=== PATIENT | male | born 1975 | race Caucasian/White ===

== ENCOUNTER 2018-04-03 12:45 | Outpatient (RCR) | payer OTHER, SELFPAY ==
--- NOTE | 2017-09-22 19:04 | MASS.EVAL_ITS ---
Massage Therapy Evaluation: Initial Evaluation Date: 09/22/2017 SUBJECTIVE: Denis is a 42 year old male who was referred to the [facility] facility for a massotherapy evaluation by Dr. Stewart Morales with the diagnosis of neck pain. Denis presents today with the symptoms of neck and upper back pain and tension. He also has muscle tension in his low back, hips and lower legs. Denis reports having a medical history of cervical spine fusion and chronic neck pain. He reports having minimal limitations during his daily activities. OBJECTIVE: Upon observation Denis has mild postural issues with his head forward and shoulders forward from the neutral position in sitting and standing. After examination and palpation I found Denis to have very high muscle tension with tenderness and myofascial restrictions in his sub occipitals, trapezius, rhomboids, scalenes, thoracic paraspinals. His hips, lumbar region and lower extremity muscles were also tight. His gastroc and soleus muscles had many knots and were very tender. The first treatment consisted of a one hour massage to his full body with myofascial release, muscle stripping, trigger point compression techniques, and cervical manual traction. ASSESSMENT: I feel that Denis is a good candidate for massotherapy at this time. He had a favorable response to the first treatment with reduction in his muscle aches, pain and tension. He also had improvement in his cervical flexibility. PLAN: The plan of care was reviewed with the patient. The patient is to be seen on as needed basis for a total of ten sessions with the recommendation of once every two weeks for a one hour treatment.
--- NOTE | 2018-04-15 14:46 | DS.PCM_ITS ---
Massage Therapy Discharge Summary: Discharge Date: 04/15/2018 Denis was seen for a massotherapy evaluation on 09/22/2017 with the diagnosis of neck pain. He was treated with six sessions of massage therapy consisting of deep pressure soft tissue techniques, myofascial release and trigger point compression to his cervical, thoracic, lower back, upper extremities and hips. Denis responded well to the therapy by reporting decreased tension and pain throughout his neck, shoulders, lower back and hips. His goals for therapy were met throughout the treatment sessions. At this time this patient is being discharged from our care at [facility] facility.
== END 2018-04-03 19:00 | disposition home or self-care (01) ==
LOC: MASS 12:45
PROVIDERS: Family Provider Family Medicine; PCP Family Medicine; Visit Provider Family Medicine
DX: M54.2 Cervicalgia (principal); G89.29 Other chronic pain
CPT/HCPCS: 97124

== ENCOUNTER 2019-03-14 09:30 | Outpatient (RCR) | payer OTHER, SELFPAY ==
--- NOTE | 2018-08-23 10:37 | MASS.EVAL ---
Massage Therapy Evaluation: Initial Evaluation Date: 08/21/2018 /Age: 01 1975, 43 Diagnosis: Cervicalgia Chronic Pain Medications: Zyrtec Multivitamin Goals: Decrease frequency & intensity of headaches Improve cervical range of motion Decrease pain and muscle tension Plan: The patient is to be seen one time per month or PRN for a total of 10 sessions Kimi Newman LMT
--- NOTE | 2019-04-09 15:16 | MASS.DISCH ---
Massage Therapy Discharge Summary: Discharge Date: 04/09/2019 Denis was seen for a massotherapy evaluation on 08/21/2018 with the diagnosis of neck pain. He was treated with nine sessions of massage therapy consisting of moderate to deep pressure soft tissue techniques, myofascial release and trigger point compression to his cervical, thoracic, lower back, upper extremities, hips and lower extremities. Denis responded well to the therapy by reporting decreased tension and pain throughout his head, neck, shoulders, lower back and hips. His goals for therapy were met throughout the treatment sessions. At this time this patient is being discharged from our care at [facility] facility.
== END 2019-03-14 19:00 | disposition home or self-care (01) ==
LOC: MASS 09:30
PROVIDERS: Family Provider Family Medicine; PCP Family Medicine; Referring Provider Family Medicine; Visit Provider Family Medicine
DX: M54.2 Cervicalgia (principal); G89.29 Other chronic pain
CPT/HCPCS: 97124

== ENCOUNTER 2020-04-23 08:15 | Outpatient (RCR) | payer OTHER, SELFPAY ==
--- NOTE | 2019-05-28 15:23 | MASS.EVAL_ITS ---
Massage Therapy Evaluation: Initial Evaluation Date: 05/28/2019 SUBJECTIVE: Denis is a 44 year old male who was referred to the [facility] facility for a massotherapy evaluation by Dr. Morales with the diagnosis of cervicalgia. Denis presents today with the symptoms of pain and tension in his neck, shoulders, back and hips. He also complains of a headache for three days in a row. Denis reports that he has a past medical history of a cervical spine surgery and pelvic surgery with metal plates from both procedures. He reports having minimal change in symptoms after stretching. OBJECTIVE: Upon observation Denis has some posture issues with his head and shoulders forward from the neutral position in sitting and standing. After examination and palpation I found Denis to have high muscle tension with tenderness and myofascial restrictions in his sub occipitals, levator scapulae, trapezius, rhomboids, scalenes, and paraspinals muscle group. His QL?s, lumbar paraspinals, piriformis, glute medius, glute minimus all had high tension with fascial restrictions and tender points. The first treatment consisted of a one hour massage to his upper body with myofascial release, muscle stripping, trigger point compression techniques. ASSESSMENT: I feel that Denis is a good candidate for massotherapy at this time. He had a favorable response to the first treatment with reduction in his muscle aches, pain and tension. He also had improvement in his cervical flexibility and low back flexibility. PLAN: The plan of care was reviewed with the patient. The patient is to be seen on an as needed basis for a total of ten sessions with the recommendation of once every month for a one hour treatment.
--- NOTE | 2020-04-23 13:33 | DS.PCM_ITS ---
Massage Therapy Discharge Summary: DATE: 04/23/20 V# [id number] PT NAME: SURYA BRODERICK : 79 REF PHYS: DR. CUBA THE PATIENT WAS SEEN FOR MASSOTHERAPY EVALUATION ON 05/28/19 WITH A DIAGNOSIS CERVICALGIA. THE PATIENT WAS TREATED WITH 3 SESSIONS OF MASSAGE CONSISTING OF ONE HOUR DEEP TISSUE MASSAGE. HIS GOALS OF TREATMENT WERE MET AND AT THIS TIME I AM DISCHARGING THE PATIENT FROM OUR CARE AT THE [facility] FOR 2020.
== END 2020-04-23 19:00 | disposition home or self-care (01) ==
LOC: MASS 08:15
PROVIDERS: PCP Family Medicine; Referring Provider Family Medicine; Visit Provider Family Medicine
DX: M54.2 Cervicalgia (principal)
CPT/HCPCS: 97124

== ENCOUNTER 2021-04-01 09:30 | Outpatient (RCR) | payer OTHER, SELFPAY ==
--- NOTE | 2020-06-02 15:53 | MASS.EVAL_ITS ---
Massage Therapy Evaluation: Initial Evaluation Date: 06/02/2020 SUBJECTIVE: Denis is a 45 year old male who was referred to the [facility] facility for a massotherapy evaluation by Dr. Morales with the diagnosis of cervicalgia. Denis presents today with the symptoms of pain and tension in his head, neck, shoulders, back, hips and hamstrings. Denis reports a past medical history of cervical spine surgery with fusion and metal implants. Denis complains of five or more headaches per week. He reports having minimal change in symptoms after his routine exercise stretching program. OBJECTIVE: Upon observation Denis has some posture issues with his head and shoulders forward from the neutral position in sitting and standing. After examination and palpation I found Denis to have high muscle tension with tenderness and myofascial restrictions in his sub occipitals, levator scapulae, trapezius, rhomboids, scalenes, and paraspinals muscle group. His QL?s, lumbar paraspinals, piriformis, glute medius, glute minimus and hamstrings all had high tension with fascial restrictions and tender points. The first treatment consisted of a one h our massage to his upper body with myofascial release, muscle stripping, trigger point compression techniques. ASSESSMENT: I feel that Denis is a good candidate for massotherapy at this time. He had a favorable response to the first treatment with reduction in his muscle aches, pain and tension. He also had improvement in his cervical flexibility and low back flexibility. PLAN: The plan of care was reviewed with the patient. The patient is to be seen on an as needed basis for a total of ten sessions with the recommendation of once every month for a one hour treatment.
--- NOTE | 2021-04-01 12:02 | DS.PCM_ITS ---
Massage Therapy Discharge Summary: Discharge Date: 04/01/2021 Denis was seen for a massotherapy evaluation on 06/02/2020 with the diagnosis of cervicalgia. He was treated with nine sessions of massage therapy consisting of deep pressure soft tissue techniques, myofascial release and trigger point compression to his cervical, thoracic, lower back, lower extremities and hips. Denis responded well to the therapy by reporting decreased tension and pain throughout his neck, shoulders, lower back and hips. His goals for therapy were met throughout the treatment sessions. At this time this patient is being discharged from our care at [facility] facility.
== END 2021-04-01 19:00 | disposition home or self-care (01) ==
LOC: MASS 09:30
PROVIDERS: PCP Family Medicine; Visit Provider Family Medicine
DX: M54.2 Cervicalgia (principal)
CPT/HCPCS: 97124

== ENCOUNTER 2021-08-13 12:30 | Outpatient (RCR) | payer OTHER, SELFPAY ==
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
== END 2021-08-13 19:00 | disposition home or self-care (01) ==
LOC: PT 12:30
PROVIDERS: PCP Family Medicine; Referring Provider Family Medicine; Visit Provider Family Medicine
DX: M54.2 Cervicalgia (principal); G89.29 Other chronic pain; M47.812 Spondylosis without myelopathy or radiculopathy, cervical region
CPT/HCPCS: 97110; 97140; 97161; 97164

== ENCOUNTER 2022-03-11 08:59 | Day surgery (SDC) | payer OTHER, SELFPAY ==
[2022-03-11] VITALS (7 sets, daily range): BP systolic 100–142; BP diastolic 61–82; PULSE 64–75; RESP 16–17; TEMP 36–36.4; O2SAT 94–97; BMI 29.7
--- NOTE | 2022-03-11 10:00 | EGD_PTH ---
PATIENT: SURYA BRODERICK Jr. LOC: EN U#:[id number] AGE/SX: 46/M ROOM: RE03/11/[address]: Dr. Larry Wick DO : 1975 BED: DIS: 03/11/2022 SPEC #: [id number] RECD: 03/11/22 10:55 STATUS: ALVARADO REQ #: [id number] VIVEK: 03/11/22 10:[address]: Larry Wick DEPT: SURGICAL PATHOLOGY RECD BY: Ivonne Vernon ENTERED: 03/11/22 11:39 SP TYPE: EGD BIOPSY OT DR: Dr. Stewart Morales DO Tissues: Esophagus, NOS Procedures: Special Stain Group II Surgery Specimen Level IV Alcian Blue/PAS (control) HEADER OPERATION: Colonoscopy, EGD ([facility]) PRE-OP DIAGNOSIS: Screening for colon cancer TISSUE SUBMITTED: Distal esophagus biopsy MICROSCOPIC DIAGNOSIS Distal esophagus, biopsy: Fragments of gastroesophageal mucosa with ulceration, associated acute inflammation and moderate chronic inflammation. Intestinal metaplasia (goblet cell metaplasia) not identified. See comment. /SJ 03/12/22 COMMENT Alcian blue/PAS stain with matched control is used in the evaluation of the specimen. MICROSCOPIC DESCRIPTION Slides are reviewed. GROSS DESCRIPTION Received is one container labeled with the patient name and designated distal esophagus. The specimen consists of multiple irregular fragments of light marcos soft tissue that in aggregate measure 1.8 x 0.3 x 0.1 cm. The specimen is totally submitted in one cassette. /SJ:eb 03/11/2022 TC:2 CPT: 10999, 43644
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
--- NOTE | 2022-03-11 10:45 | OP.EGD_ITS ---
Patient Name: Denis Ramirez Procedure Date: 03/11/2022 10:07 AM Date of : 1975 Age: 46 Procedure: Upper GI endoscopy Indications: Heartburn Providers: Larry Wick DO Medicines: Monitored Anesthesia Care Patient Profile: This is a 46 year old male. Refer to note in patient chart for documentation of history and physical. Patient has symptoms of chronic cough and chronic heartburn. Complications: No immediate complications. Procedure: Pre-Anesthesia Assessment: - Prior to the procedure, a History and Physical was performed, and patient medications and allergies were reviewed. The risks and benefits of the procedure and the sedation options and risks were discussed with the patient. All questions were answered and informed consent was obtained. Patient identification and proposed procedure were verified by the physician in the pre-procedure area. Mental Status Examination: alert and oriented. Airway Examination: normal oropharyngeal airway and neck mobility. Respiratory Examination: clear to auscultation. CV Examination: normal. Prophylactic Antibiotics: The patient does not require prophylactic antibiotics. Prior Anticoagulants: The patient has taken no previous anticoagulant or antiplatelet agents. ASA Grade Assessment: II - A patient with mild systemic disease. After reviewing the risks and benefits, the patient was deemed in satisfactory condition to undergo the procedure. The anesthesia plan was to use monitored anesthesia care (MAC). Immediately prior to administration of medications, the patient was re-assessed for adequacy to receive sedatives. The heart rate, respiratory rate, oxygen saturations, blood pressure, adequacy of pulmonary ventilation, and response to care were monitored throughout the procedure. The physical status of the patient was re-assessed after the procedure. After obtaining informed consent, the endoscope was passed under direct vision. Throughout the procedure, the patient's blood pressure, pulse, and oxygen saturations were monitored continuously. The Colonoscope was introduced through the mouth, and advanced to the second part of duodenum. The upper GI endoscopy was accomplished without difficulty. The patient tolerated the procedure well. Scope In: 10:14:29 AM Scope Out: 10:20:07 AM Total Procedure Duration Time 0 hours 5 minutes 38 seconds Findings: LA Grade C (one or more mucosal breaks continuous between tops of 2 or more mucosal folds, less than 75% circumference) esophagitis with no bleeding was found 36 to 40 cm from the incisors. Biopsies were taken with a cold forceps for histology. Verification of patient identification for the specimen was done. Estimated blood loss was minimal. A small hiatal hernia was present. No other significant abnormalities were identified in a careful examination of the stomach. No gross lesions were noted in the second portion of the duodenum. Impression: - LA Grade C reflux esophagitis. Rule out Gil's esophagus. Biopsied. - Small hiatal hernia. - No gross lesions in the second portion of the duodenum. Recommendation: - Discharge patient to home. - Resume previous diet. - Continue present medications. - Use Protonix (pantoprazole) 40 mg PO BID for 8 weeks. Procedure Code(s): --- Professional --- 43966, Esophagogastroduodenoscopy, flexible, transoral; with biopsy, single or multiple CPT copyright 2017 [employer]. All rights reserved. The codes documented in this report are preliminary and upon divorce attorney review may be revised to meet current compliance requirements. Larry Wick DO 03/11/2022 10:44:50 AM This report has been signed electronically. Number of Addenda: 0 Note Initiated On: 03/11/2022 10:07 AM
--- NOTE | 2022-03-11 10:46 | OP.CCLET_ITS ---
03/11/2022 Stewart Morales [address] [place] [address] Re : Upper GI endoscopy procedure for Denis Micheleleticia Dear Dr. Morales This procedure was performed on February. My impressions and recommendations are as follows: Impressions : - LA Grade C reflux esophagitis. Rule out Gil's esophagus. Biopsied. - Small hiatal hernia. - No gross lesions in the second portion of the duodenum. Recommendations : - Discharge patient to home. - Resume previous diet. - Continue present medications. - Use Protonix (pantoprazole) 40 mg PO BID for 8 weeks. My findings are described in the full procedure note, which is enclosed. If I can be of further assistance, please feel free to contact me at . Sincerely, Larry Friend, 03/11/2022 10:44:50 AM This report has been signed electronically.
--- NOTE | 2022-03-11 10:54 | OP.CCLET_ITS ---
03/11/2022 Stewart Morales [address] [place] [address] Re : Colonoscopy procedure for Denisallegra Bautistaleticia Dear Dr. Morales This procedure was performed on February. My impressions and recommendations are as follows: Impressions : - The entire examined colon is normal on direct and retroflexion views. - No specimens collected. Recommendations : - Discharge patient to home. - Resume previous diet. - Continue present medications. - Repeat colonoscopy in 10 years for screening purposes. My findings are described in the full procedure note, which is enclosed. If I can be of further assistance, please feel free to contact me at . Sincerely, Larry Wick, 03/11/2022 10:53:41 AM This report has been signed electronically.
--- NOTE | 2022-03-11 10:54 | OP.COLON_ITS ---
Patient Name: Denis Ramirez Procedure Date: 03/11/2022 10:20 AM Date of : 1975 Age: 46 Procedure: Colonoscopy Indications: Screening for colorectal malignant neoplasm Providers: Larry Wick DO Medicines: Monitored Anesthesia Care Patient Profile: This is a 46 year old male. Refer to note in patient chart for documentation of history and physical. Patient has symptoms of chronic cough and chronic heartburn. Last Colonoscopy: none. The patient's first colonoscopy is today. Complications: No immediate complications. Procedure: Pre-Anesthesia Assessment: - Prior to the procedure, a History and Physical was performed, and patient medications and allergies were reviewed. The risks and benefits of the procedure and the sedation options and risks were discussed with the patient. All questions were answered and informed consent was obtained. Patient identification and proposed procedure were verified by the physician in the pre-procedure area. Mental Status Examination: alert and oriented. Airway Examination: normal oropharyngeal airway and neck mobility. Respiratory Examination: clear to auscultation. CV Examination: normal. Prophylactic Antibiotics: The patient does not require prophylactic antibiotics. Prior Anticoagulants: The patient has taken no previous anticoagulant or antiplatelet agents. ASA Grade Assessment: II - A patient with mild systemic disease. After reviewing the risks and benefits, the patient was deemed in satisfactory condition to undergo the procedure. The anesthesia plan was to use monitored anesthesia care (MAC). Immediately prior to administration of medications, the patient was re-assessed for adequacy to receive sedatives. The heart rate, respiratory rate, oxygen saturations, blood pressure, adequacy of pulmonary ventilation, and response to care were monitored throughout the procedure. The physical status of the patient was re-assessed after the procedure. After I obtained informed consent, the scope was passed under direct vision. Throughout the procedure, the patient's blood pressure, pulse, and oxygen saturations were monitored continuously. The Colonoscope was introduced through the anus and advanced to the cecum, identified by appendiceal orifice and ileocecal valve. The colonoscopy was performed without difficulty. The patient tolerated the procedure well. The quality of the bowel preparation was good. Scope In: 10:22:25 AM Scope Withdrawal Time 0 hours 9 minutes 53 seconds Scope Out: 10:34:47 AM Total Procedure Duration Time 0 hours 12 minutes 22 seconds Findings: The entire examined colon appeared normal on direct and retroflexion views. The perianal and digital rectal examinations were normal. Impression: - The entire examined colon is normal on direct and retroflexion views. - No specimens collected. Recommendation: - Discharge patient to home. - Resume previous diet. - Continue present medications. - Repeat colonoscopy in 10 years for screening purposes. Procedure Code(s): --- Professional --- G0121, Colorectal cancer screening; colonoscopy on individual not meeting criteria for high risk CPT copyright 2017 [employer]. All rights reserved. The codes documented in this report are preliminary and upon packing checker review may be revised to meet current compliance requirements. Larry Wick DO 03/11/2022 10:53:41 AM This report has been signed electronically. Number of Addenda: 0 Note Initiated On: 03/11/2022 10:20 AM
== END 2022-03-11 11:39 | disposition home or self-care (01) ==
LOC: EN 09:00 → AC 09:02
PROVIDERS: PCP Family Medicine; Referring Provider Family Medicine; Visit Provider Internal Medicine Gastroenterology
PROC: 0DJD8ZZ Inspection of Lower Intestinal Tract, Via Natural or Artificial Opening Endoscopic (ICD-10-PCS; CPT 45378; principal; 2022-03-11 09:55)
DX: Z12.11 Encounter for screening for malignant neoplasm of colon (principal); K21.00 Gastro-esophageal reflux disease with esophagitis, without bleeding; K44.9 Diaphragmatic hernia without obstruction or gangrene; M50.30 Other cervical disc degeneration, unspecified cervical region; F41.9 Anxiety disorder, unspecified; Z79.899 Other long term (current) drug therapy; Z86.16 Personal history of COVID-19
CPT/HCPCS: 45378; 43239; 88305; 88313; J7120; J2405

== ENCOUNTER → 2024-02-08 | Outpatient (CLI) | payer OTHER, SELFPAY ==
[2024-02-08 13:18] LABS: PSA,Total - Annual Screen 1.03 ng/mL (0.00-4.00)
== END | disposition home or self-care (01) ==
LOC: BFHLAB 12:03
PROVIDERS: PCP Nurse Practitioner Family; Referring Provider Nurse Practitioner Family; Visit Provider Nurse Practitioner Family
DX: Z12.5 Encounter for screening for malignant neoplasm of prostate (principal)
CPT/HCPCS: 84153; G0103

== ENCOUNTER → 2024-06-18 | Outpatient (CLI) | payer OTHER, SELFPAY ==
[2024-06-18 11:40] LABS: Hemoglobin A1c 5.5 % (3.8-5.6)
[2024-06-18 21:24] LABS: T4 Free Direct 0.85 ng/dL (0.76-1.46)
== END | disposition home or self-care (01) ==
PROVIDERS: PCP Family Medicine; Referring Provider Family Medicine; Visit Provider Family Medicine
DX: R63.5 Abnormal weight gain (principal)
CPT/HCPCS: 36415; 82533; 83036; 84439; 84443

== ENCOUNTER → 2024-06-22 | Outpatient (CLI) | payer OTHER, SELFPAY ==
[2024-06-26 16:08] LABS: Free Kappa Light Chains 18.8 mg/L (3.3-19.4); Free Lambda Light Chains 12.1 mg/L (5.7-26.3); PROEL- A/G Ratio 1.1 (0.7-1.7); PROEL- Albumin 3.8 g/dL (2.9-4.4); PROEL- Alpha-1 Globulin 0.2 g/dL (0.0-0.4); PROEL- Alpha-2 Globulin 0.8 g/dL (0.4-1.0); PROEL- Beta Globulin 1.2 g/dL (0.7-1.3); PROEL- Gamma Globulin 1.1 g/dL (0.4-1.8); PROEL- Globulin, Total 3.4 g/dL (2.2-3.9); PROEL- TOTAL PROTEIN 7.2 g/dL (6.0-8.5); PROEL-M-Spike Not Observed g/dL (Not Observed); PROELU- Albumin, Urine 49.7 % (.); PROELU- Alpha-1-Globulin,Ur 2.6 % (.); PROELU- Alpha-2-Globulin,Ur 13.3 % (.); PROELU- Beta Globulin, Ur 20.2 % (.); PROELU- Gamma Globulin, Ur 14.2 % (.); Total Protein, Ur 9.4 mg/dL (Not Estab.)
== END | disposition home or self-care (01) ==
LOC: BFHLAB 11:13
PROVIDERS: PCP Family Medicine; Visit Provider Family Medicine
DX: G62.9 Polyneuropathy, unspecified (principal); Z83.49 Family history of other endocrine, nutritional and metabolic diseases
CPT/HCPCS: 36415; 83883; 84165; 84166

== ENCOUNTER → 2024-07-16 | Outpatient (CLI) | payer OTHER, SELFPAY ==
--- NOTE | 2024-07-16 13:53 | RAD_ITS ---
EXAM: XR Chest, 2 Views CLINICAL INDICATION: COUGH TECHNIQUE: Frontal and lateral views of the chest. COMPARISON: No relevant prior studies available. FINDINGS: LUNGS AND PLEURAL SPACES: Unremarkable. No consolidation. No pneumothorax. HEART: Unremarkable. No cardiomegaly. MEDIASTINUM: Unremarkable. Normal mediastinal contour. BONES/JOINTS: Unremarkable. No acute fracture. RAD/Chest PA and Lateral IMPRESSION: No acute cardiopulmonary process. Reading [facility]
== END | disposition home or self-care (01) ==
LOC: MTRAD 13:52
PROVIDERS: PCP Family Medicine; Referring Provider Family Medicine; Visit Provider Family Medicine
DX: R05.9 Cough, unspecified (principal)
CPT/HCPCS: 71046